=== PATIENT | male | born 1985 | race Caucasian/White ===

== ENCOUNTER 2016-08-21 01:22 | Emergency (ER) | payer MEDICAID ==
[~2016-08-21] VITALS: Ht 185.4 cm; Wt 60.0 kg
[2016-08-21] MEDS ORDERED: KETOROLAC 30 MG/1 ML IM ONE (01:30)
[2016-08-21] MEDS ORDERED: KETOROLAC 30 MG/1 ML ONE (01:34)
[2016-08-21 02:26] VITALS: BP 120/72
== END 2016-08-21 02:31 | disposition home or self-care (01) ==
LOC: ED 02:25
DX: R07.89 Other chest pain (principal)
CPT/HCPCS: 71010; 93005; 96372; 99284; J1885